=== PATIENT | male | born 1995 | race Caucasian/White ===

== ENCOUNTER 2018-12-07 19:47 | Emergency (ER) | payer MEDICAID ==
[~2018-12-07] VITALS: Ht 175.3 cm; Wt 117.0 kg
[2018-12-07 19:56] VITALS: BP 128/63
--- NOTE | 2018-12-07 20:00 | NUR ---
PT RETURNED TO LOBBY IN STABLE CONDITION
--- NOTE | 2018-12-07 20:03 | NUR ---
PT AMBULATED TO BED 08.
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
--- NOTE | 2018-12-07 20:48 | NUR ---
Dr. Samuels evaluating patient at bedside.
[2018-12-07] MEDS ORDERED: ACETAMINOPHEN/CODEINE 300/30MG 1 TAB PO ONE (21:00)
[2018-12-07] MEDS ORDERED: KETOROLAC 30 MG/ML VIAL IM ONE (21:00)
--- NOTE | 2018-12-07 21:30 | NUR ---
Patient discharged with v/s stable. Written and verbal after care instructions given and explained. Patient alert, oriented and verbalized understanding of instructions. Ambulatory with steady gait. All questions addressed prior to discharge. ID band removed. Patient advised to follow up with PMD. Rx of TYLENOL, NAPROSYN given. Patient educated on indication of medication including possible reaction and side effects. Opportunity to ask questions provided and answered.
[2018-12-07 21:34] VITALS: BP 107/63
== END 2018-12-07 21:30 | disposition home or self-care (01) ==
LOC: MED 19:47
DX: M79.652 Pain in left thigh (principal)
CPT/HCPCS: 96372; 99283; J1885